=== PATIENT | female | born 1980 | race Caucasian/White ===

== ENCOUNTER 2024-05-11 13:02 | Emergency (ER) | payer SELFPAY ==
[~2024-05-11] VITALS: Ht 167.6 cm; Wt 63.5 kg
[2024-05-11] MEDS ORDERED: IBUPROFEN 600 MG TABLET ONE (13:45)
[2024-05-11] MEDS: IBUPROFEN 600 MG TABLET PO ONE (13:47)
[2024-05-11 14:28] VITALS: BP 150/66; TEMP 98.6; O2SAT 98
== END 2024-05-11 14:29 | disposition home or self-care (01) ==
LOC: ER 13:05
DX: I10 Essential (primary) hypertension (principal); H53.8 Other visual disturbances; R51.9 Headache, unspecified; Z60.2 Problems related to living alone